=== PATIENT | male | born 1965 | race Native Hawaiian/Other Pacific Islander ===

== ENCOUNTER 2020-11-07 09:30 | Emergency (ER) | payer OTHER ==
[~2020-11-07] VITALS: Ht 175.3 cm; Wt 59.0 kg
[2020-11-07 10:22] LABS: PLATELET COUNT 264 K/uL (142-355)
[2020-11-07 10:29] LABS: POTASSIUM 3.9 mmol/L (3.6-5.2)
[2020-11-07 19:00] VITALS: BP 141/79; TEMP 97.6
== END 2020-11-08 15:30 | disposition other institution (70) ==
LOC: ED 09:30
PROVIDERS: Emergency Medicine
DX: R45.851 Suicidal ideations (principal); R44.0 Auditory hallucinations; Z11.52 Encounter for screening for COVID-19
CPT/HCPCS: 80053; 80307; 80320; 80329; 81000; 85027; 87635; 93005; 99285; U0003